=== PATIENT | female | born 1960 | race Caucasian/White ===

== ENCOUNTER → 2018-01-22 10:49 | Outpatient (CLI) | payer BC, SELFPAY ==
--- NOTE | 2018-01-22 10:56 | XR_ITS ---
XR ankle RT min 3V HISTORY: ITS.REASON: PAIN LATERAL PORTION OF ANKLE ORDERING PHYSICIAN: Tracy Schmidt PATIENT AGE: 57 years Comparison: None FINDINGS: There are 2 well-circumscribed lucencies at the tip of the lateral malleolus suggesting old fractures. In addition, there is a more ill-defined transverse lucency just proximal to the old fracture which may be due to an acute avulsion injury nondisplaced. Please correlate with clinical findings. No other significant anomalies are evident. There are no old studies available for review. IMPRESSION: Suspect old and acute transverse avulsion fractures at the lateral malleolus
== END ==
PROVIDERS: PCP Internal Medicine Adolescent Medicine; Visit Provider Nurse Practitioner Family
DX: M25.571 Pain in right ankle and joints of right foot (principal)
CPT/HCPCS: 73610

== ENCOUNTER → 2019-01-05 10:07 | Outpatient (CLI) | payer BC, SELFPAY ==
[2019-01-05 11:37] LABS: Alanine Aminotransferase 25 U/L (12-78); Albumin Level 3.5 gm/dL (3.4-5.0); Albumin/Globulin Ratio 1.2 (1.1-1.8); Alkaline Phosphatase 119 U/L (46-116); Anion Gap 15.3 mEq/L (5-15); Aspartate Amino Transferase 15 U/L (15-37); Bilirubin,Total 0.5 mg/dL (0.2-1.0); Blood Urea Nitrogen 12 mg/dL (7-18); Carbon Dioxide 27 mmol/L (21.0-32.0); Chloride 107 mmol/L (98-107); Chol/HDL Ratio 4.6 (1-3.5); Cholesterol 158 mg/dL (140-200); Creatinine,Serum 0.81 mg/dL (0.55-1.02); Estimated Glomerular Filt Rate 72 ml/min (>60); GFR (African American) 87 ML/MIN (>60); Glucose 103 mg/dL (74-106); HDL Cholesterol 34 mg/dL (29-89); LDL Cholesterol 98 mg/dL (0-130); Potassium 4.3 mmoL/L (3.5-5.1); Sodium 145 mmol/L (136-145); Thyroid Stimulating Hormone 0.93 uIU/ml (0.358-3.740); Total Protein,Serum 6.5 gm/dL (6.4-8.2); Triglycerides 129 mg/dL (30-200); VLDL Cholesterol 26 mg/dL (0-40)
[2019-01-11 06:16] LABS: Vitamin D 25 Hydroxy 27.1 ng/mL (30.0-100.0)
== END ==
PROVIDERS: Visit Provider Internal Medicine Adolescent Medicine
DX: E78.5 Hyperlipidemia, unspecified (principal); I10 Essential (primary) hypertension; E04.9 Nontoxic goiter, unspecified; E55.9 Vitamin D deficiency, unspecified
CPT/HCPCS: 36415; 80053; 80061; 82652; 84443

== ENCOUNTER → 2019-01-21 14:34 | Outpatient (CLI) | payer BC, SELFPAY ==
--- NOTE | 2019-01-21 14:39 | CT_ITS ---
CT lung screening EXAM: CT LUNG LOW DOSE WO CONTRAST HISTORY: 45 pack year smoking history, asymptomatic for lung cancer ITS.REASON: H/O NICOTINE DEPENDENCE ORDERING PHYSICIAN: Malou Freitas APRN PATIENT AGE: 58 years COMPARISON: None TECHNIQUE: The exam was performed on a GE Light Speed [address] scanner using 2.90 mGy CTDI. A low dose helical CT CHEST was performed on a multi-detector scanner. All studies performed at the facility use one or more dose reduction, viz: automated exposure control, ma/kV adjustment per patient size (including targeted exams where dose is matched to indication, i.e. head), or iterative reconstruction technique. The LDCT was performed in a facility that meets the criteria for the screening program. Data regarding this exam was submitted to ACR which is an approved registry. The order for this exam indicates that it came as a result of a lung cancer screening counseling shard decision-making visit that included all the elements required of such a visit including smoking cessation. The radiologist interpreting this exam meets the CMS criteria for the LDCT lung cancer screening program. The exam is reported using the Lung-RADS classification scale and reported to the ACR registry. NOTE: This study was performed for the specific purposes of lung cancer screening and is not an alternative to diagnostic chest CT. RADIATION DOSE: CTDI vol(CT dose Index-volume) = 2.90mG DLP (Dose Length Product) = 97.68 mGcm FINDINGS: 4 mm noncalcified nodule right upper lobe medially image #42. 4 mm noncalcified nodule right lower lobe posteriorly image #52. Calcified granuloma left upper lobe. Mild fibrotic or atelectatic change left lung base. Coronary artery calcifications. Medium-sized hiatal hernia. Osteosclerosis involves the endplates anteriorly at T7 and T8. IMPRESSION: 1. Lung RADS Category: 2, benign 2. Other findings: Coronary artery calcifications, Hiatal hernia RECOMMENDATIONS: 12 month LDCT follow-up
== END ==
PROVIDERS: PCP Internal Medicine Adolescent Medicine; Visit Provider Nurse Practitioner Family
DX: Z12.2 Encounter for screening for malignant neoplasm of respiratory organs (principal); Z87.891 Personal history of nicotine dependence

== ENCOUNTER 2021-06-10 11:00 | Outpatient (RCR) | payer BC, SELFPAY | END 2021-06-22 15:54 | disposition home or self-care (01) | LOC: OT 11:00 | PROVIDERS: Visit Provider Orthopaedic Surgery Adult Reconstructive Orthopaedic Surgery | DX: G56.03 Carpal tunnel syndrome, bilateral upper limbs (principal) | CPT/HCPCS: 97010; 97035; 97110; 97140; 97164; 97165 ==

== ENCOUNTER → 2022-03-22 09:43 | Outpatient (CLI) | payer BC, SELFPAY ==
--- NOTE | 2022-03-22 09:44 | US_ITS ---
FINAL REPORT CLINICAL HISTORY: abdominal pain FINDINGS: Sonographic images of the right upper quadrant were obtained. The pancreas is partially obscured.The liver has an unremarkable appearance.The gallbladder appears normal without evidence of gallstones.There is no evidence of biliary ductal dilatation. The common duct was not measured but there is no evidence of biliary ductal dilatation. Limited images of the right kidney are unremarkable. IMPRESSION: Unremarkable right upper quadrant ultrasound. Reviewed, Interpreted and Dictated by Kyle Fishman III, MD Transcribed by Aziza Jewell Authenticated and . [facility]
== END ==
PROVIDERS: PCP Internal Medicine Adolescent Medicine; Visit Provider Family Medicine
DX: R10.9 Unspecified abdominal pain (principal)
CPT/HCPCS: 76705

== ENCOUNTER → 2022-06-14 11:09 | Outpatient (CLI) | payer BC, SELFPAY ==
--- NOTE | 2022-06-14 11:09 | MM_ITS ---
PROCEDURE INFORMATION: Exam: MG Bilateral Screening 3D Mammography Exam date and time: 06/14/2022 11:04 AM Age: 61 years old Clinical indication: Screening. No family history of breast cancer. TECHNIQUE: Imaging protocol: Bilateral Screening tomosynthesis and 2D mammography including computer-aided detection (CAD) when performed. COMPARISON: 1. [place] VIV DIGITAL SCREEN BILATERAL 01/09/2019 8:52 AM 2. [place] TOMOSYNTESIS SCREEN 12/27/2016 1:29 PM FINDINGS: MAMMOGRAPHY: Breast composition: There are scattered areas of fibroglandular density. Mass: None. Architectural distortion: None. Calcifications: No suspicious calcifications. Asymmetric density: None. Skin thickening: None. Axillary adenopathy: None. IMPRESSION: No mammographic evidence of malignancy. Annual screening is recommended unless otherwise clinically indicated. ASSESSMENT: BI-RADS Category 1: Negative
== END ==
PROVIDERS: PCP Family Medicine; Visit Provider Family Medicine
DX: Z12.31 Encounter for screening mammogram for malignant neoplasm of breast (principal)
CPT/HCPCS: 77063; 77067

== ENCOUNTER → 2022-07-27 15:58 | Outpatient (CLI) | payer BC, SELFPAY ==
--- NOTE | 2022-07-27 16:03 | XR_ITS ---
FINAL REPORT CLINICAL HISTORY: neck pain and pain across shoulder blades, pain in left arm FINDINGS: CERVICAL SPINE Three views demonstrate no acute fracture. There are mild and moderate degenerative changes. Multilevel disc osteophyte complexes are identified. There is mild anterolisthesis of C3 on 4, C4 on 5, and C5 on 6. IMPRESSION: Degenerative changes as detailed above. Reviewed, Interpreted and Dictated by Kyle Fishman III, MD Transcribed by Aziza Jewell Authenticated and [facility]
--- NOTE | 2022-07-27 16:03 | XR_ITS ---
FINAL REPORT CLINICAL HISTORY: neck pain and pain across shoulder blades, pain in left arm FINDINGS: THORACIC SPINE Two views demonstrate no acute fracture. There is S-shaped curvature. There are mild degenerative changes. There is no malalignment. IMPRESSION: No acute process. Reviewed, Interpreted and Dictated by Kyle Fishman III, MD Transcribed by Aziza Jewell Authenticated and [facility]
== END ==
PROVIDERS: PCP Family Medicine; Visit Provider Family Medicine
DX: M54.2 Cervicalgia (principal); R20.2 Paresthesia of skin
CPT/HCPCS: 72040; 72070

== ENCOUNTER 2022-10-03 08:00 | Outpatient (RCR) | payer BC, SELFPAY | END 2022-11-14 09:30 | disposition home or self-care (01) | LOC: PT 08:00 | PROVIDERS: PCP Family Medicine; Visit Provider Family Medicine | DX: M54.2 Cervicalgia (principal) | CPT/HCPCS: 97010; 97012; 97014; 97110; 97140; 97163; 97164; 97530; G0283 ==

== ENCOUNTER → 2022-10-12 16:14 | Outpatient (CLI) | payer BC, SELFPAY ==
--- NOTE | 2022-10-12 16:14 | MR_ITS ---
PROCEDURE INFORMATION: Exam: MR Cervical Spine Without Contrast Exam date and time: 10/12/2022 4:38 PM Age: 62 years old Clinical indication: Neck pain. TECHNIQUE: Imaging protocol: Magnetic resonance imaging of the cervical spine without contrast. COMPARISON: MRI C SPINE WO 11/27/2020 1:57 PM FINDINGS: Bones/joints: Unremarkable. No fracture. Normal alignment. Spinal cord: Normal signal. No cord compression. C2-C3: There is disc desiccation. There is a moderate disc/osteophyte complex, partial toward the left, that flattens the ventral thecal sac and causes mild narrowing of the left neural foramen. There is bilateral uncovertebral joint arthropathy, worse on the left. There is moderate left-sided neuroforaminal narrowing. C3-C4: There is degenerative disc disease including disc space narrowing and dessication. There is mild ventral ridging which flattens the ventral thecal sac. C4-C5: There is grade 1 anterior spondylolisthesis at this level. There is disc space narrowing and desiccation. There are moderate degenerative end plate changes at this level. There is mild ventral ridging which flattens the ventral thecal sac. There is moderate bilateral uncovertebral joint arthropathy. C5-C6: There is grade 1 anterior spondylolisthesis at this level. There is degenerative disc disease including disc space narrowing and dessication. There is a moderate disc/osteophyte complex that flattens the ventral thecal sac. There is moderate bilateral uncovertebral joint arthropathy. C6-C7: There is disc space narrowing and desiccation. There are moderate degenerative end plate changes at this level. There is a moderate disc/osteophyte complex that flattens the ventral thecal sac. There is a small broad-based disc protrusion that encroaches into both neural foramen. There is moderate bilateral uncovertebral joint arthropathy. C7-T1: No significant disc bulge or herniation. No severe spinal canal stenosis. No significant neural foraminal narrowing. Soft tissues: Unremarkable. IMPRESSION: Multilevel degenerative changes causing varying degrees of spinal canal and neuroforaminal narrowing. There has been mild progression since prior study. Please see details above.
== END ==
PROVIDERS: PCP Family Medicine; Visit Provider Family Medicine
DX: M54.2 Cervicalgia (principal)
CPT/HCPCS: 72141; 76376

== ENCOUNTER → 2022-10-17 11:17 | Outpatient (CLI) | payer BC, SELFPAY ==
[2022-10-17 17:25] LABS: Basophils # 0.2 K/mm3 (0-0.2); Basophils % 2.1 % (0.1-2.0); Eosinophils # 0.3 K/mm3 (0.0-0.4); Eosinophils % 3.6 % (0.1-12.0); Hematocrit 34.7 % (37.0-47.0); Hemoglobin 11.4 g/dL (12.2-16.2); Lymphocytes # 1.6 K/mm3 (0.7-4.5); Lymphocytes % 21.7 % (10-50); Mean Corpuscular Hemoglobin 28.9 pg (27.0-31.2); Mean Corpuscular Volume 87.5 fl (81-99); Mean Platelet Volume 10.5 fl (7.4-10.4); Monocytes # 0.4 K/mm3 (0.1-1.0); Monocytes % 4.8 % (1.7-9.3); Neutrophils % 67.9 % (37.0-80.0); Platelet Count 249 K/mm3 (142-424); Red Blood Count 3.96 M/mm3 (4.20-5.40); Red Cell Distribution Width 14.4 % (11.5-17.5); White Blood Count 7.4 K/mm3 (4.8-10.8)
[2022-10-17 17:29] LABS: Alanine Aminotransferase 19 U/L (12-78); Albumin Level 4.1 g/dl (3.5-5.0); Albumin/Globulin Ratio 1.6 (1.1-1.8); Alkaline Phosphatase 120 U/L (38-126); Anion Gap 11.3 mEq/L (5-15); Aspartate Amino Transferase 31 U/L (14-36); Bilirubin,Total 0.4 mg/dl (0.2-1.3); Blood Urea Nitrogen 15 mg/dl (7-17); Calcium 9.3 mg/dl (8.4-10.2); Carbon Dioxide 25 mmol/L (22.0-30.0); Chloride 108 mmol/L (98-107); Chol/HDL Ratio 4.3 (1-3.5); Cholesterol 167 mg/dl (140-200); Estimated Glomerular Filt Rate 72 ml/min (>60); GFR (African American) 87 ML/MIN (>60); Globulin 2.6 g/dL (1.3-3.2); Glucose 103 mg/dl (74-100); HDL Cholesterol 39 mg/dl (40-60); Potassium 4.3 mmoL/L (3.5-5.1); Sodium 140 mmol/L (136-145); Total Protein,Serum 6.7 g/dl (6.3-8.2); Triglycerides 171 mg/dl (30-150); VLDL Cholesterol 34 mg/dL (0-40)
[2022-10-17 17:40] LABS: Direct LDL Cholesterol 93.56 mg/dL (100-129)
[2022-10-17 17:59] LABS: Thyroid Stimulating Hormone 1.33 uIU/mL (0.465-4.68)
== END ==
PROVIDERS: PCP Family Medicine; Visit Provider Family Medicine
DX: I10 Essential (primary) hypertension (principal); E78.5 Hyperlipidemia, unspecified; Z13.29 Encounter for screening for other suspected endocrine disorder; Z79.899 Other long term (current) drug therapy
CPT/HCPCS: 80053; 80061; 84443; 85025

== ENCOUNTER 2023-10-12 08:04 | Outpatient (CLI) | payer MEDICARE, SELFPAY ==
--- NOTE | 2023-10-12 08:05 | MM_ITS ---
PROCEDURE INFORMATION: Exam: MG Bilateral Screening 3D Mammography Exam date and time: 10/12/2023 8:05 AM Age: 63 years old Clinical indication: Screening examination TECHNIQUE: Imaging protocol: Bilateral Screening tomosynthesis and 2D mammography including computer-aided detection (CAD) when performed. COMPARISON: 1. MG MM DIG SCREENING MAMM BI W/CAD 06/14/2022 11:04 AM 2. MG [facility] VIV DIGITAL SCREEN BILATERAL 01/09/2019 8:52 AM FINDINGS: MAMMOGRAPHY: Breast composition: There are scattered areas of fibroglandular density. Mass: None. Architectural distortion: None. Calcifications: No suspicious calcifications. Asymmetric density: None. Skin thickening: None. Axillary adenopathy: None. IMPRESSION: No mammographic evidence of malignancy. Annual screening is recommended unless otherwise clinically indicated. ASSESSMENT: BI-RADS Category 1: Negative
== END 2023-10-12 23:59 ==
LOC: RAD 08:05
PROVIDERS: PCP Family Medicine; Visit Provider Nurse Practitioner Family
DX: Z12.31 Encounter for screening mammogram for malignant neoplasm of breast (principal)
CPT/HCPCS: 77063; 77067

== ENCOUNTER 2023-10-24 16:45 | Outpatient (CLI) | payer MEDICARE, SELFPAY ==
[2023-10-24 16:46] LABS: Basophils # 0.1 K/mm3 (0-0.2); Basophils % 1.3 % (0.1-2.0); Eosinophils # 0.2 K/mm3 (0.0-0.4); Eosinophils % 2.5 % (0.1-12.0); Hematocrit 37.7 % (37.0-47.0); Hemoglobin 11.5 g/dL (12.2-16.2); Lymphocytes # 1.7 K/mm3 (0.7-4.5); Lymphocytes % 26.2 % (10-50); Mean Corpuscular HGB Conc 30.6 g/dL (31.8-35.4); Mean Corpuscular Hemoglobin 26.5 pg (27.0-31.2); Mean Corpuscular Volume 86.8 fl (81-99); Mean Platelet Volume 11.1 fl (7.4-10.4); Monocytes # 0.4 K/mm3 (0.1-1.0); Monocytes % 5.9 % (1.7-9.3); Neutrophils # 4.2 K/mm3 (1.8-7.8); Neutrophils % 64.1 % (37.0-80.0); Platelet Count 278 K/mm3 (142-424); Red Blood Count 4.34 M/mm3 (4.20-5.40); Red Cell Distribution Width 15.3 % (11.5-17.5); White Blood Count 6.6 K/mm3 (4.8-10.8)
[2023-10-24 16:48] LABS: Albumin Level 4.6 g/dl (3.5-5.0); Albumin/Globulin Ratio 1.8 (1.1-1.8); Calcium 10.4 mg/dl (8.4-10.2); Chloride 105 mmol/L (98-107); Globulin 2.6 g/dL (1.3-3.2); Glucose 122 mg/dl (74-100); HDL Cholesterol 44 mg/dl (40-60); Potassium 4.2 mmoL/L (3.5-5.1); Sodium 140 mmol/L (136-145); Total Protein,Serum 7.2 g/dl (6.3-8.2)
[2023-10-24 16:50] LABS: Alkaline Phosphatase 99 U/L (38-126); Anion Gap 11.2 mEq/L (5-15); Bilirubin,Total 0.4 mg/dl (0.2-1.3); Carbon Dioxide 28 mmol/L (22.0-30.0); Chol/HDL Ratio 4.9 (1-3.5); Cholesterol 217 mg/dl (140-200); Triglycerides 215 mg/dl (30-150); VLDL Cholesterol 43 mg/dL (0-40)
[2023-10-24 16:52] LABS: Estimated Glomerular Filt Rate 41 ml/min (>60); GFR (African American) 50 ML/MIN (>60)
[2023-10-24 16:59] LABS: Direct LDL Cholesterol 111.32 mg/dL (100-129)
[2023-10-24 17:05] LABS: 25-OH Vitamin D, Total 41.7 ng/mL (30-100)
[2023-10-24 17:41] LABS: Alanine Aminotransferase 16 U/L (12-78); Aspartate Amino Transferase 29 U/L (14-36); Blood Urea Nitrogen 23 mg/dl (7-17)
[2023-10-26 11:28] LABS: Hemoglobin A1C 5.8 % (4.0-6.0)
== END 2023-10-24 23:59 ==
LOC: LAB.DROPOF 16:46
PROVIDERS: PCP Nurse Practitioner Family; Visit Provider Nurse Practitioner Family
DX: I10 Essential (primary) hypertension (principal); E78.5 Hyperlipidemia, unspecified; E55.9 Vitamin D deficiency, unspecified; R73.09 Other abnormal glucose; Z68.33 Body mass index [BMI] 33.0-33.9, adult; F17.210 Nicotine dependence, cigarettes, uncomplicated
CPT/HCPCS: 80053; 80061; 82306; 83036; 84443; 85025

== ENCOUNTER 2024-01-23 22:25 | Outpatient (CLI) | payer MEDICARE, SELFPAY ==
[2024-01-23 23:24] LABS: Basophils # 0.1 K/mm3 (0-0.2); Basophils % 0.8 % (0.1-2.0); Eosinophils # 0.2 K/mm3 (0.0-0.4); Eosinophils % 2.9 % (0.1-12.0); Hematocrit 39.9 % (37.0-47.0); Hemoglobin 12.7 g/dL (12.2-16.2); Lymphocytes # 1.8 K/mm3 (0.7-4.5); Lymphocytes % 26.5 % (10-50); Mean Corpuscular HGB Conc 31.8 g/dL (31.8-35.4); Mean Corpuscular Hemoglobin 28.9 pg (27.0-31.2); Mean Corpuscular Volume 90.9 fl (81-99); Mean Platelet Volume 11.2 fl (7.4-10.4); Monocytes # 0.4 K/mm3 (0.1-1.0); Monocytes % 5.2 % (1.7-9.3); Neutrophils # 4.4 K/mm3 (1.8-7.8); Neutrophils % 64.5 % (37.0-80.0); Platelet Count 214 K/mm3 (142-424); White Blood Count 6.9 K/mm3 (4.8-10.8)
[2024-01-23 23:25] LABS: Chloride 105 mmol/L (98-107); Potassium 4.1 mmoL/L (3.5-5.1); Sodium 140 mmol/L (136-145)
[2024-01-23 23:27] LABS: Blood Urea Nitrogen 20 mg/dl (7-17); Estimated Glomerular Filt Rate 50 ml/min (>60); GFR (African American) 60 ML/MIN (>60)
[2024-01-23 23:28] LABS: Alanine Aminotransferase 22 U/L (12-78); Albumin Level 4.4 g/dl (3.5-5.0); Albumin/Globulin Ratio 1.6 (1.1-1.8); Alkaline Phosphatase 103 U/L (38-126); Anion Gap 12.1 mEq/L (5-15); Aspartate Amino Transferase 32 U/L (14-36); Bilirubin,Total 0.3 mg/dl (0.2-1.3); Calcium 10.6 mg/dl (8.4-10.2); Carbon Dioxide 27 mmol/L (22.0-30.0); Cholesterol 208 mg/dl (140-200); Globulin 2.8 g/dL (1.3-3.2); Glucose 118 mg/dl (74-100); Total Protein,Serum 7.2 g/dl (6.3-8.2); Triglycerides 222 mg/dl (30-150); VLDL Cholesterol 44 mg/dL (0-40)
[2024-01-23 23:29] LABS: Chol/HDL Ratio 4.8 (1-3.5); HDL Cholesterol 43 mg/dl (40-60)
[2024-01-23 23:38] LABS: Hemoglobin A1C 5.5 % (4.0-6.0)
[2024-01-23 23:46] LABS: Direct LDL Cholesterol 116.09 mg/dL (100-129)
[2024-01-24 14:11] LABS: HIV (1&2) Antibody Rapid NONREACTIVE
[2024-01-24 14:45] LABS: Intact Parathyroid Hormone 25.6 pg/mL (7.5-53.5)
[2024-01-25 10:41] LABS: HCV Ab Non Reactive (Non Reactive)
== END 2024-01-23 23:59 | disposition home or self-care (01) ==
LOC: LAB.DROPOF 22:26
PROVIDERS: PCP Nurse Practitioner Family; Visit Provider Nurse Practitioner Family
DX: R73.09 Other abnormal glucose (principal); D64.9 Anemia, unspecified; Z11.59 Encounter for screening for other viral diseases; E78.5 Hyperlipidemia, unspecified; R89.9 Unspecified abnormal finding in specimens from other organs, systems and tissues
CPT/HCPCS: 80053; 80061; 83036; 83970; 85025

== ENCOUNTER 2024-04-30 16:19 | Outpatient (CLI) | payer MEDICARE, SELFPAY ==
[2024-04-30 16:24] LABS: Albumin Level 4.3 g/dl (3.5-5.0); Chloride 109 mmol/L (98-107); Potassium 4.7 mmoL/L (3.5-5.1); Sodium 141 mmol/L (136-145)
[2024-04-30 16:27] LABS: Alanine Aminotransferase 24 U/L (12-78); Albumin/Globulin Ratio 1.7 (1.1-1.8); Alkaline Phosphatase 103 U/L (38-126); Anion Gap 6.7 mEq/L (5-15); Aspartate Amino Transferase 31 U/L (14-36); Bilirubin,Total 0.5 mg/dl (0.2-1.3); Blood Urea Nitrogen 17 mg/dl (7-17); Calcium 10.5 mg/dl (8.4-10.2); Carbon Dioxide 30 mmol/L (22.0-30.0); Cholesterol 177 mg/dl (140-200); Estimated Glomerular Filt Rate 56 ml/min (>60); GFR (African American) 67 ML/MIN (>60); Globulin 2.6 g/dL (1.3-3.2); Glucose 109 mg/dl (74-100); HDL Cholesterol 44 mg/dl (40-60); Total Protein,Serum 6.9 g/dl (6.3-8.2); Triglycerides 159 mg/dl (30-150); VLDL Cholesterol 32 mg/dL (0-40)
[2024-04-30 16:33] LABS: Basophils # 0.1 K/mm3 (0-0.2); Basophils % 0.7 % (0.1-2.0); Eosinophils # 0.2 K/mm3 (0.0-0.4); Eosinophils % 3.1 % (0.1-12.0); Hematocrit 40.5 % (37.0-47.0); Hemoglobin 13.2 g/dL (12.2-16.2); Lymphocytes # 1.8 K/mm3 (0.7-4.5); Lymphocytes % 28.6 % (10-50); Mean Corpuscular HGB Conc 32.6 g/dL (31.8-35.4); Mean Corpuscular Hemoglobin 31.7 pg (27.0-31.2); Mean Corpuscular Volume 97.2 fl (81-99); Mean Platelet Volume 10.1 fl (7.4-10.4); Monocytes # 0.3 K/mm3 (0.1-1.0); Monocytes % 5.1 % (1.7-9.3); Neutrophils % 62.4 % (37.0-80.0); Platelet Count 214 K/mm3 (142-424); Red Blood Count 4.17 M/mm3 (4.20-5.40); Red Cell Distribution Width 14.3 % (11.5-17.5); White Blood Count 6.4 K/mm3 (4.8-10.8)
[2024-04-30 16:38] LABS: Direct LDL Cholesterol 92.91 mg/dL (100-129)
== END 2024-04-30 23:59 | disposition home or self-care (01) ==
LOC: LAB.DROPOF 16:20
PROVIDERS: PCP Family Medicine; Visit Provider Family Medicine
DX: I10 Essential (primary) hypertension (principal); E78.5 Hyperlipidemia, unspecified
CPT/HCPCS: 80053; 80061; 85025

== ENCOUNTER 2024-05-14 09:32 | Outpatient (CLI) | payer MEDICARE, SELFPAY ==
--- NOTE | 2024-05-14 09:32 | CT_ITS ---
FINAL REPORT TECHNIQUE: Thin section axial images were obtained from the lung apices to the upper abdomen by computed tomography. Reformatted images were obtained and reviewed. This study was performed with techniques to keep radiation doses al low as reasonably achievable (ALARA). Individualized dose reduction techniques using automated exposure control or adjustment of mA and/or kV according to the patient's size were employed. CLINICAL HISTORY: lung cancer screening cuurent smoker 1ppd x49 years COMPARISON: Exam dated 01/21/2019 FINDINGS: CHEST CT LOW DOSE 64-year-old female, current smoker, [id number] history. CTDI vol (mGy): 2.9 DLP (mGy-cm): 93.77 There is no axillary adenopathy. A large hiatal hernia is present. There are mild coronary artery calcifications noted. The heart is normal in size. There is no pericardial or pleural effusion. A calcified granuloma is present in the left upper lobe. Lung window images demonstrate a posterior right lower lobe nodule, 4 mm in size, best seen on image #50 of series 3, stable since the prior exam. No new masses or nodules are identified. Limited images of the upper abdomen are unremarkable. IMPRESSION: Lung-RADS category 1. Recommend 12 month follow up low dose chest CT. Reviewed, Interpreted and Dictated by Kyle Fishman III, MD Transcribed by Altagracia Major Authenticated and [facility]
== END 2024-05-14 23:59 | disposition home or self-care (01) ==
LOC: RAD 09:32
PROVIDERS: PCP Family Medicine; Visit Provider Family Medicine
DX: F17.210 Nicotine dependence, cigarettes, uncomplicated (principal)
CPT/HCPCS: 71271

== ENCOUNTER 2024-11-01 10:15 | Outpatient (CLI) | payer MEDICARE, SELFPAY ==
[2024-11-01 16:32] LABS: Basophils % 0.6 % (0.1-2.0); Eosinophils # 0.2 K/mm3 (0.0-0.4); Eosinophils % 3.3 % (0.1-12.0); Hematocrit 39.4 % (37.0-47.0); Hemoglobin 12.6 g/dL (12.2-16.2); Lymphocytes # 1.8 K/mm3 (0.7-4.5); Lymphocytes % 27.1 % (10-50); Mean Platelet Volume 12.5 fl (7.4-10.4); Monocytes # 0.4 K/mm3 (0.1-1.0); Monocytes % 5.8 % (1.7-9.3); Neutrophils # 4.2 K/mm3 (1.8-7.8); Neutrophils % 62.9 % (37.0-80.0); Platelet Count 292 K/mm3 (142-424); Red Blood Count 4.06 M/mm3 (4.20-5.40); Red Cell Distribution Width 13.4 % (11.5-17.5); White Blood Count 6.7 K/mm3 (4.8-10.8)
[2024-11-01 17:21] LABS: Albumin Level 4.8 g/dl (3.5-5.0); Chloride 105 mmol/L (98-107); Potassium 5.7 mmoL/L (3.5-5.1); Sodium 140 mmol/L (136-145)
[2024-11-01 17:24] LABS: Alanine Aminotransferase 34 U/L (12-78); Albumin/Globulin Ratio 1.9 (1.1-1.8); Alkaline Phosphatase 87 U/L (38-126); Anion Gap 15.7 mEq/L (5-15); Aspartate Amino Transferase 48 U/L (14-36); Bilirubin,Total 0.6 mg/dl (0.2-1.3); Blood Urea Nitrogen 23 mg/dl (7-17); Calcium 10.6 mg/dl (8.4-10.2); Carbon Dioxide 25 mmol/L (22.0-30.0); Cholesterol 254 mg/dl (140-200); Estimated Glomerular Filt Rate 38 ml/min (>60); GFR (African American) 46 ML/MIN (>60); Globulin 2.5 g/dL (1.3-3.2); Glucose 95 mg/dl (74-100); Total Protein,Serum 7.3 g/dl (6.3-8.2); Triglycerides 262 mg/dl (30-150); VLDL Cholesterol 52 mg/dL (0-40)
[2024-11-01 17:25] LABS: Chol/HDL Ratio 5.8 (1-3.5); HDL Cholesterol 44 mg/dl (40-60)
[2024-11-01 17:37] LABS: Direct LDL Cholesterol 145.17 mg/dL (100-129)
[2024-11-01 17:54] LABS: Thyroid Stimulating Hormone 1.51 uIU/mL (0.465-4.68)
[2024-11-01 18:11] LABS: Hemoglobin A1C 5.5 % (4.0-6.0)
== END 2024-11-01 23:59 | disposition home or self-care (01) ==
LOC: LAB.DROPOF 11-02 11:15
PROVIDERS: PCP Nurse Practitioner Family; Visit Provider Nurse Practitioner Family
DX: E78.1 Pure hyperglyceridemia (principal); I10 Essential (primary) hypertension; E55.9 Vitamin D deficiency, unspecified; F41.8 Other specified anxiety disorders; E78.5 Hyperlipidemia, unspecified; K21.9 Gastro-esophageal reflux disease without esophagitis
CPT/HCPCS: 80053; 80061; 82306; 83036; 84443; 85025

== ENCOUNTER 2024-11-05 13:59 | Outpatient (CLI) | payer MEDICARE, SELFPAY ==
--- NOTE | 2024-11-05 14:30 | MM_ITS ---
PROCEDURE INFORMATION: Exam: MG Bilateral Screening 3D Mammography Exam date and time: 11/05/2024 2:05 PM Age: 64 years old Clinical indication: Screening examination TECHNIQUE: Imaging protocol: Bilateral Screening tomosynthesis and 2D mammography including computer-aided detection (CAD) when performed. COMPARISON: 1. MG MM DIG SCREENING MAMM BI W/CAD 10/12/2023 8:05 AM 2. MG MM DIG SCREENING MAMM BI W/CAD 06/14/2022 11:04 AM FINDINGS: MAMMOGRAPHY: Breast composition: There are scattered areas of fibroglandular density. Mass: None. Architectural distortion: None. Calcifications: No suspicious calcifications. Asymmetric density: None. Skin thickening: None. Axillary adenopathy: None. IMPRESSION: No mammographic evidence of malignancy. Annual screening is recommended unless otherwise clinically indicated. ASSESSMENT: BI-RADS Category 1: Negative.
[2024-11-05 15:32] LABS: Alanine Aminotransferase 27 U/L (12-78); Albumin Level 4.6 g/dl (3.5-5.0); Albumin/Globulin Ratio 1.5 (1.1-1.8); Alkaline Phosphatase 75 U/L (38-126); Aspartate Amino Transferase 29 U/L (14-36); Bilirubin,Total 0.6 mg/dl (0.2-1.3); Blood Urea Nitrogen 19 mg/dl (7-17); Calcium 11.2 mg/dl (8.4-10.2); Carbon Dioxide 25 mmol/L (22.0-30.0); Chloride 105 mmol/L (98-107); Chol/HDL Ratio 4.9 (1-3.5); Cholesterol 226 mg/dl (140-200); Estimated Glomerular Filt Rate 45 ml/min (>60); GFR (African American) 54 ML/MIN (>60); Globulin 3.1 g/dL (1.3-3.2); Glucose 89 mg/dl (74-100); HDL Cholesterol 46 mg/dl (40-60); Sodium 140 mmol/L (136-145); Total Protein,Serum 7.7 g/dl (6.3-8.2); Triglycerides 228 mg/dl (30-150); VLDL Cholesterol 46 mg/dL (0-40)
[2024-11-05 15:44] LABS: Direct LDL Cholesterol 134.65 mg/dL (100-129)
== END 2024-11-05 23:59 | disposition home or self-care (01) ==
LOC: RAD 13:59
PROVIDERS: Nurse Practitioner Family; PCP Family Medicine; Visit Provider Family Medicine
DX: Z12.31 Encounter for screening mammogram for malignant neoplasm of breast (principal); I10 Essential (primary) hypertension
CPT/HCPCS: 36415; 77063; 77067; 80053; 80061

== ENCOUNTER 2025-02-06 09:48 | Outpatient (CLI) | payer MEDICARE, SELFPAY ==
[2025-02-06 21:23] LABS: Hematocrit 39.3 % (37.0-47.0); Hemoglobin 11.8 g/dL (12.2-16.2); Immature Granulocytes % 0.2 %; Mean Corpuscular HGB Conc 30.0 g/dL (31.8-35.4); Mean Corpuscular Hemoglobin 29.0 pg (27.0-31.2); Mean Corpuscular Volume 96.6 fl (81-99); Nucleated Red Blood Cells % 0 %; Platelet Count 233 K/mm3 (142-424); Red Blood Count 4.07 M/mm3 (4.20-5.40); Red Cell Distribution Width-SD 47.8 fL; White Blood Count 6.7 K/mm3 (4.8-10.8)
[2025-02-06 21:48] LABS: Alanine Aminotransferase 17 U/L (12-78); Albumin Level 4.5 g/dl (3.5-5.0); Albumin/Globulin Ratio 1.9 (1.1-1.8); Alkaline Phosphatase 98 U/L (38-126); Anion Gap 13.2 mEq/L (5-15); Aspartate Amino Transferase 25 U/L (14-36); Bilirubin,Total 0.5 mg/dl (0.2-1.3); Blood Urea Nitrogen 18 mg/dl (7-17); Calcium 10.1 mg/dl (8.4-10.2); Carbon Dioxide 27 mmol/L (22.0-30.0); Chloride 104 mmol/L (98-107); Cholesterol 141 mg/dl (140-200); Creatinine,Serum 0.90 mg/dl (0.52-1.04); Estimated Glomerular Filt Rate 63 ml/min (>60); GFR (African American) 76 ML/MIN (>60); Globulin 2.4 g/dL (1.3-3.2); Glucose 124 mg/dl (74-100); HDL Cholesterol 37 mg/dl (40-60); Potassium 4.2 mmoL/L (3.5-5.1); Sodium 140 mmol/L (136-145); Total Protein,Serum 6.9 g/dl (6.3-8.2); Triglycerides 165 mg/dl (30-150)
[2025-02-06 22:04] LABS: 25-OH Vitamin D, Total 28.7 ng/mL (30-100)
[2025-02-09 08:10] LABS: Hepatitis B Surface Antigen Negative (Negative)
--- OUTSIDE RECORDS SUMMARY | 2025-02-10 10:00 | XMS_ITS | Clinical Summary ---
Author Organization Healthcare Address [address] [id number] Care Team Providers Care Metal Furnace Operator Name Role Phone Tiffany Martínez STONE FINISHER Primary Care Provider +1- [phone] Allergies No known active allergies Medications atorvastatin (Lipitor) 40 MG tablet Take by mouth. 10/28/2020 Active carvedilol (Coreg) 25 MG tablet Take by mouth. 10/28/2020 Active cetirizine (ZyrTEC) 10 MG tablet Take by mouth. 10/28/2020 Active famotidine (Pepcid) 20 MG tablet Take by mouth. 10/28/2020 Active hydroCHLOROthiaz keisha (HYDRODiuril) 25 MG tablet Take by mouth. 10/15/2020 Active omeprazole (PriLOSEC) [address] capsule Take by mouth. 10/28/2020 Active sertraline (Zoloft) 100 MG tablet Take by mouth. 11/02/2020 Active Family History Medical History Relation Name Comments Rheum arthritis Sister Relation Name Status Comments Sister Social History Tobacco Use Types Packs/Day Years Used Date Smoking Tobacco: Every Day Comments Unknown Sex and Gender Information Value Date Recorded Sex Assigned at Not on file Legal Sex Female 8:26 PM EDT Gender Identity Not on file Sexual Orientation Not on file Last Filed Vital Signs Vital Sign Reading Time Taken Comments Blood Pressure 130/78 12/11/2020 7:44 AM EDT Pulse 57 12/11/2020 7:44 AM EDT Temperature 36.5 C (97.7 F) 12/11/2020 7:44 AM EDT Respiratory Rate - - Oxygen Saturation - - Inhaled Oxygen Concentration - - Weight 90.9 kg (200 lb 8 oz) 12/11/2020 7:44 AM EDT Height 162.6 cm (5' 4 ) 12/11/2020 7:44 AM EDT Body Mass Index 34.42 12/11/2020 7:44 AM EDT Plan of Treatment Health Maintenance Due Date Last Done Comments [facility]-Bone Density Scan 1960 [facility]-Depression Screening 1960 [facility]-/Child/Adol SDOH Screenings 1960 [facility]- SDOH Screenings 1976 [facility]-Adult SDOH Screenings 1976 [facility]-DTaP,Tdap,and Td Vaccines (1 - Tdap) 1977 CT Colonography 2003 Colonoscopy 2003 FIT-DNA 2003 FIT 2003 FOBT 2003 Sigmoidoscopy 2003 [facility]-Colorectal Cancer Screening 2003 [facility]-Pneumococcal Vaccine: 50+ Years (1 of 1 - PCV) 2008 [facility]-Zoster Vaccines (1 of 2) 2008 [id number] Vaccine (1 - season) 2024 [facility]-Influenza Vaccine (#1) 2025 [facility]-RSV Vaccine: 60+ Years or (1 - 1-dose 75+ series) 2033 [facility]-Cervical Cancer Screening Discontinued [facility]-HPV/Cotest Discontinued 05/24/2007, 05/07, 03/31/2005, Additional history exists [facility]-Pap Smear Discontinued 05/24/2007, 05/07, 03/31/2005, Additional history exists HPV Vaccines Aged Out No longer eligi ble based on patient's age to complete this topic [facility]-HIB Vaccines Aged Out No longer e ligible based on patient's age to complete this topic [facility]-Hepatitis A Vaccines Aged Out No longer eligible based on patient's age to complete this topic [facility]-IPV Vaccines Aged Out No longer e ligible based on patient's age to complete this topic [facility]-Rotavirus Vaccines Aged Out No lo nger eligible based on patient's age to complete this topic Procedures Procedure Name Priority Date/Time Associated Diagnosis Comments CYTO DATA CONVERSION Routine 05/24/2007 12:00 AM EDT from Last 3 Months or Most Recently Relevant to Health Maintenance Results * (ABNORMAL) Cytology (05/24/2007 12:00 AM EDT) 05/24/2007 05/25/2007 2:2 5 PM EDT Narrative SUNQUEST - 06/04/2007 1:53 PM EDT [facility] MR #: [id number] [facility] [address] [place], [place] [address] 1960 (Age: 46) FW Collect Date: 05/24/2007 00:00 Receipt Date: 05/25/2007 14:25 Page 1 DEPARTMENT OF PATHOLOGY AND LABORATORY MEDICINE CYTOPATHOLOGY REPORT Email: [email or web address] [id number] ATTENDING MD/Practitioner: Fe Yeboah MD Service: [facility] Location: OUTS Reported: 06/04/2007 13:53 Collected: 05/24/2007 00:00 INTERPRETATION A. THIN PREP (CERVICAL/VAGINAL): ATYPICAL SQUAMOUS CELLS - UNDETERMINED SIGNIFICANCE. SHIFT IN VICTORIANO SUGGESTIVE OF BACTERIAL VAGINOSIS. SATISFACTORY FOR EVALUATION; ENDOCERVICAL/ TRANSFORMATION ZONE COMPONENT PRESENT. Slide scanned and imaged by [employer] ThinPrep Imaging System with manual review of all selected apple. Please correlate with HPV results (see microbiology report, or call [phone]) and refer to clinical guidelines for additional management (www.asccp.org). Electronically Signed Out Leonid Castro, CT(ASCP) MD Vonda Celeste CT(ASCP) Cervical cytology is a screening test primarily for squamous cancers and precursors and has associated false negative and positive results. New technologies such as liquid based sampling may decrease but will not eliminate all false negative results. Regular screening and follow-up of unexplained clinical signs and symptoms are recommended to minimize false negative results. Please see the ASCCP website (www.asccp.org) for followup recommendations. If HPV testing was requested, correlation with the results is suggested (please call Microbiology at [phone] for results). CLINICAL INFORMATION: Menstrual History: {Not Provided} Date of Last Menstrual Period: 06/08 Contraceptive History: control pills Other Clinical Conditions: Tobacco user SPECIMEN DESCRIPTION: A: THIN PREP (CERVICAL/VAGINAL) THIN PREP PROCESS CELLULAR ENHANCEMENT ICD: V76.2 CERVIX, SPECIAL SCREENING FOR MALIGNANT NEOPLASM 795.01 (ASC-US) PAPANICOLAOU SMEAR OF CERVIX W/ATYPICAL SQUAMOUS CELLS OF UNDETERMINED SIGNIFICANCE 622.2 LEUKOPLAKIA OF CERVIX (HYPERKERATOSIS CERVIX) 041.89 OTHER SPECIFIED BACTERIAL INFECTIONS F: A; RT IMAGE 78339, 00240 C\V (PO) SNOMED CODES: A; H9R270 M-06214 [id number] [id number] In cases where a pathologist has signed out the report, the service has been rendered in part by a resident. The signing pathologist has performed and is responsible for the reported pathologic evaluation. us Historical Provider MD LAB PATHOLOGY ORDERABLES Final Result [employer] from Last 3 Months or Most Recently Relevant to Health Maintenance Insurance [facility]ly [facility], [facility] [address] Care Teams Metal Furnace Operator Relationship Specialty Start Date End Date Tiffany Martínez APRN [address] [place] [id number] PCP - General 12/18/20
--- OUTSIDE RECORDS SUMMARY | 2025-02-10 10:00 | XMS_ITS | Clinical Summary ---
Author Organization [facility] Address [address] [place] [address] Care Team Providers Care Solar Energy Installation Manager Name Role Phone System, Referring Not In Primary Care Provider U navailable Social History Tobacco Use Types Packs/Day Years Used Date Smoking Tobacco: Never Assessed Comments Unknown Sex and Gender Information Value Date Recorded Sex Assigned at Not on file Legal Sex Female 12:37 PM EDT Gender Identity Not on file Sexual Orientation Not on file Plan of Treatment Not on [place] [address] [place] BC[place] Care Teams Solar Energy Installation Manager Relationship Specialty Start Date End Date System, Referring Not In PCP - General 11/05/13
== END 2025-02-06 23:59 | disposition home or self-care (01) ==
LOC: LAB.DROPOF 02-10 09:49
PROVIDERS: PCP Nurse Practitioner Family; Visit Provider Nurse Practitioner Family
DX: E78.5 Hyperlipidemia, unspecified (principal); Z11.59 Encounter for screening for other viral diseases; R79.89 Other specified abnormal findings of blood chemistry
CPT/HCPCS: 80053; 80061; 82306; 85025; 87340

== ENCOUNTER 2025-05-22 14:11 | Outpatient (CLI) | payer MEDICARE, SELFPAY ==
--- OUTSIDE RECORDS SUMMARY | 2025-05-22 14:29 | XMS_ITS | Clinical Summary ---
Author Organization Healthcare Address [address] [id number] Care Team Providers Care Tension Machine Operator Name Role Phone Tiffany Martínez ICING AND GLAZE MAKER Primary Care Provider +1- [phone] Allergies No known active allergies Medications atorvastatin [...] [facility]-Bone Density Scan 1960 [facility]-Depression Screening 1958 [facility]-Infant/Child/Adol SDOH Screenings 1958 [facility]- SDOH Screenings 1976 [facility]-Adult SDOH Screenings 1976 [facility]-DTaP,Tdap,and Td Vaccines (1 - Tdap) 1977 CT Colonography 2003 Colonoscopy 2003 FIT-DNA 2003 FIT 2003 FOBT 2003 Sigmoidoscopy 2003 [facility]-Colorectal Cancer Screening 2003 [facility]-Pneumococcal Vaccine: 50+ Years (1 of 1 - PCV) 2008 [facility]-Zoster Vaccines (1 of 2) 2008 [id number] Vaccine (1 - season) 2025 [facility]-Influenza Vaccine (#1) 2025 [facility]-RSV Vaccine: 60+ [...] Narrative SUNQUEST - 06/04/2007 1:53 PM EDT [facility] MR #: [id number] [facility] [address] [place], [place] [address] 1960 (Age: 46) FW Collect Date: 05/24/2007 00:00 Receipt Date: 05/25/2007 14:25 Page 1 DEPARTMENT OF PATHOLOGY AND LABORATORY MEDICINE CYTOPATHOLOGY REPORT Email: [id number] ATTENDING MD/Practitioner: Fe Yeboah MD Service: [facility] Location: OUTS Reported: 06/04/2007 13:53 Collected: 05/24/2007 00:00 INTERPRETATION A. THIN PREP (CERVICAL/VAGINAL): ATYPICAL SQUAMOUS CELLS - UNDETERMINED SIGNIFICANCE. SHIFT IN VICTORIANO SUGGESTIVE OF BACTERIAL VAGINOSIS. SATISFACTORY FOR EVALUATION; ENDOCERVICAL/ TRANSFORMATION ZONE COMPONENT PRESENT. Slide scanned and imaged by [email or web address] ThinPrep Imaging System with manual review of all selected apple. Please correlate with HPV results (see microbiology report, or call [phone]) and refer to clinical guidelines for additional [...] results is suggested (please call Microbiology at [phone] for results). CLINICAL INFORMATION: Menstrual History: {Not [...] SPECIFIED BACTERIAL INFECTIONS F: A; RT IMAGE 06286, 76441 C\V (PO) SNOMED CODES: A; [id number] M-[id number] [id number] In cases where a pathologist has signed out the report, the service has been rendered in part by a resident. The signing pathologist has performed and is responsible for the reported pathologic evaluation. us Historical Provider LAB PATHOLOGY ORDERABLES Fin al Result [email or web address] from Last 3 Months or Most Recently Relevant to Health Maintenance Insurance [facility]ly [facility], [id number] Care Teams Tension Machine Operator Relationship Specialty Start Date End Date Tiffany Martínez APRN [address] [place] [id number] PCP - General 12/18/20
--- OUTSIDE RECORDS SUMMARY | 2025-05-22 14:29 | XMS_ITS | Clinical Summary ---
Author Organization [facility] Address [address], [address] [place] [address] Care Team Providers Care Sports Clerk Name Role Phone System, Referring Not In Primary Care Provider U navailable Social History Tobacco Use Types Packs/Day Years Used Date Smoking Tobacco: Never Assessed Comments Unknown Sex and Gender Information Value Date Recorded Sex Assigned at Not on file Legal Sex Female 12:37 PM EDT Gender Identity Not on file Sexual Orientation Not on file Plan of Treatment Not on file Insurance [place] [address] [place] BCBS Care Teams Sports Clerk Relationship Specialty Start Date End Date System, Referring Not In PCP - General 11/05/13
--- OUTSIDE RECORDS SUMMARY | 2025-05-22 14:29 | XMS_ITS | Clinical Summary ---
Author Organization [facility] Address [address] [place] [address] Care Team Providers Care Icd 9 Coder Name Role Phone Alvarez Duncan MD Primary Care Provider +1- [phone] Allergies No known active allergies Medications aspirin 81 MG oral suspension Acti ve atorvastatin (LIPITOR) 40 MG tablet Take 1 tablet by mouth Daily. 3 Active busPIRone (BUSPAR) 5 MG tablet Take 1 tablet by mouth Every 12 (Twelve) Hours. 3 Active carvedilol (COREG) 25 MG tablet TAKE 1 TABLET 2 TIMES EACH DAY FOR HYPERTENSION 3 Active vitamin D3 125 MCG (5000 UT) capsule capsule Acti ve Cyanocobalamin (Vitamin B-12) 5000 MCG tablet dispersible Active fenofibrate (TRICOR) 48 MG tablet TAKE 1 TABLET 1 TIME EACH DAY FOR HIGH CHOLESTEROL 3 Active hydroCHLOROthia zide (HYDRODIURIL) 25 MG tablet Active multivitamin with minerals (WOMENS ONE DAILY PO) Active sertraline (ZOLOFT) 100 MG tablet TAKE 1 TABLET 1 TIME EACH DAY FOR DEPRESSION 3 Active omeprazole (priLOSEC) 40 MG capsule 1 capsule. 3 Active Active Problems Problem Noted Date Diagnosed Date Cervicalgia 02/16/2023 Family History Medical History Relation Name Comments Anxiety disorder Daughter Amber Depression Daughter Amber Cancer Father Bhavesh Stomach Cancer Maternal Aunt 1 Erlene Breast Cancer Maternal Aunt 2 Angélica Breast Diabetes Maternal Grandmother Ginny Hyperlipidemia Mother Deloris Other Mother Deloris Brain aneurysm Anxiety disorder Sister 1 Malou Arthritis Sister 1 Malou Depression Sister 1 Malou Anxiety disorder Sister 2 Carmen Arthritis Sister 2 Carmen Depression Sister 2 Carmen Hearing loss Sister 2 Carmen Hyperlipidemia Sister 2 Carmen Arthritis Sister 3 Mary Early Sister 4 Nidia 5 yo of pnuemon ia Relation Name Status Comments Daughter Amber Father Bhavesh Maternal Aunt 1 Erlene Maternal Aunt 2 Angélica Maternal Grandmother Ginny Mother Deloris Sister 1 Malou Sister 2 Carmen Sister 3 Mary Sister 4 Nidia Social History Tobacco Use Types Packs/Day Years Used Date Smoking Tobacco: Every Day Cigarettes 0.5 50 Tobacco Cessation:Ready to Q uit: Not Asked; Counseling Given: Not Answered Alcohol Use Standard Drinks/Week Comments Never 0 (1 standard drink = 0.6 oz pur e alcohol) Abuse Screen Answer Date Recorded Unsafe at Home or Work/School Not on file Feels Threatened by Someone? Not on file 06/2023 Does Anyone Keep You from Co ntacting Others or Doint Things Outside the Home? Not on file 05/17/2023 Physical Sign of Abuse Present Not on file 1 Housing Stability Answer Date Recorded Current Living Arrangements Not on file 05/07 Potentially Unsafe Housing Conditions Not on zahraa e 05/17/2023 Family and Community Support Answer Ashish e Recorded Help with Day-to-Day Activities Not on file 05/17/2023 Lonely or Isolated Not on file 05/17/2023 Employment Answer Date Recorded Do you want help finding or keeping work or a zay b? Not on file 05/17/2023 Disabilities Answer Date Recorded Concentrating, Remembering, or Making Decisions Difficulty Not on file 05/17/2023 Doing Errands Independently Difficulty Not on fi le 05/17/2023 Education Answer Date Recorded Help with school or training? Not on file Preferred Language Not on file 05/17/2023 Comments Unknown Sex and Gender Information Value Date Recorded Sex Assigned at Not on file Legal Sex Female 8:35 AM EDT Gender Identity Not on file Sexual Orientation Not on file Last Filed Vital Signs Vital Sign Reading Time Taken Comments Blood Pressure 142/84 02/16/2023 11:32 AM EDT Pulse - - Temperature 36.4 C (97.5 F) 02/16/2023 11:32 AM EDT Respiratory Rate - - Oxygen Saturation - - Inhaled Oxygen Concentration - - Weight 86.2 kg (190 lb) 02/16/2023 11:32 AM EDT Height 162.6 cm (5' 4 ) 02/16/2023 11:32 AM EDT Body Mass Index 32.61 02/16/2023 11:32 AM EDT Plan of Treatment Health Maintenance Due Date Last Done Comments DXA SCAN 1960 Pneumococcal Vaccine 50+ (1 of 2 - PCV) 1977 COLOGUARD 2003 COLON CANCER SCREENING 5 YEAR SIGMOIDOSCOPY 2003 COLONOSCOPY [address]ER SCREENING 2003 CT COLONOGRAPHY 2003 FECAL OCCULT BLOOD TEST 2003 FIT Testing (1 year) 2003 ZOSTER VACCINE (1 of 2) 2008 MAMMOGRAM 01/09/2021 01/09/2019 ANNUAL PHYSICAL 11/14/2022 HEPATITIS C SCREENING 11/14/2022 INFLUENZA VACCINE 03/07/2025 COVID-19 Vaccine (2 - season) 04/07/202505/2021 TDAP/TD VACCINES (2 - Td or Tdap) 03/26/[address] [place] [address] PPO Care Teams Icd 9 Coder Relationship Specialty Start Date End Date Alvarez Duncan MD PCP - General Family Medicine 10/21/22
--- NOTE | 2025-05-22 14:30 | CT_ITS ---
FINAL REPORT TECHNIQUE: Thin section axial images were obtained through the lungs using a low-dose technique per lung cancer screening protocol. Reconstruction images were obtained using the axial data. Exam was performed using dose reduction technique. CLINICAL HISTORY: lung cancer screening. Smokes 1.5 ppd x50 yrs. COMPARISON: 05/14/2024 FINDINGS: CTDLvol: 2.90 DLP: 96.38 Current smoker 75 pack year history Lungs: No acute pulmonary abnormality. The 4 mm posterior right lower lobe nodule noted on the prior LDCT of 05/14/2024 is once again seen, and stable in appearance. This nodule is best seen on image #47 of series 4. There is evidence of remote granulomatous disease. No new nodules are identified. Lymph nodes: No thoracic lymphadenopathy. Mediastinum: Heart size is normal. Note is made of a large hiatal hernia. Pleura/pericardium: No pleural or pericardial effusion. Prominent coronary artery calcifications are noted. Other: No acute abnormality in the upper abdomen. IMPRESSION: Stable 4 mm posterior right lower lobe nodule, with no new nodules identified. Lung RADS: 1S, the S designation for prominent coronary artery calcifications. Recommendation: 12-month follow-up LDCT. Reviewed, Interpreted and Dictated by Evita Bundy MD Transcribed by Altagracia Major Authenticated and . [facility]
== END 2025-05-22 23:59 | disposition home or self-care (01) ==
LOC: RAD 14:11
PROVIDERS: PCP Nurse Practitioner Family; Visit Provider Family Medicine
DX: I25.10 Atherosclerotic heart disease of native coronary artery without angina pectoris (principal); R91.1 Solitary pulmonary nodule; Z12.2 Encounter for screening for malignant neoplasm of respiratory organs; F17.210 Nicotine dependence, cigarettes, uncomplicated
CPT/HCPCS: 71271

== ENCOUNTER 2025-06-02 10:17 | Outpatient (CLI) | payer MEDICARE, SELFPAY ==
--- NOTE | 2025-06-02 10:19 | XR_ITS ---
FINAL REPORT CLINICAL HISTORY: left hip pain..no trauma COMPARISON: None FINDINGS: LEFT HIP: 3 views of the left hip demonstrate no acute fracture or dislocation. Moderate hypertrophic change of the acetabular margin is noted. The visualized bony structures are well aligned. No soft tissue abnormality is seen. IMPRESSION: Degenerative change as described, with no acute bony abnormality. Reviewed, Interpreted and Dictated by Gigi Monroy MD Transcribed by Altagracia Major Authenticated and [facility]
--- OUTSIDE RECORDS SUMMARY | 2025-06-02 10:28 | XMS_ITS | Clinical Summary ---
Author Organization [facility] Address [address] [id number] Care Team Providers Care Yarn Spinner Name Role Phone Tiffany Martínez FACILITY OPERATIONS MANAGER Primary Care Provider +1- [phone] Allergies No known active allergies Medications atorvastatin [...] 2008 UKY-Zoster Vaccines (1 of 2) 2008 [id number] Vaccine (1 - season) 2025 UKY-Influenza Vaccine [...] Narrative SUNQUEST - 06/04/2007 1:53 PM EDT [facility] MR #: [id number] [facility] [address] [place], [place] [address] 1960 (Age: 46) FW Collect Date: 05/24/2007 00:00 Receipt Date: 05/25/2007 14:25 Page 1 DEPARTMENT OF PATHOLOGY AND LABORATORY MEDICINE CYTOPATHOLOGY REPORT Email: [email or web address] ATTENDING MD/Practitioner: Fe Yeboah MD Service: [facility] Location: OUTS Reported: 06/04/2007 13:53 Collected: 05/24/2007 00:00 INTERPRETATION A. THIN PREP (CERVICAL/VAGINAL): ATYPICAL SQUAMOUS CELLS - UNDETERMINED SIGNIFICANCE. SHIFT IN VICTORIANO SUGGESTIVE OF BACTERIAL VAGINOSIS. SATISFACTORY FOR EVALUATION; ENDOCERVICAL/ TRANSFORMATION ZONE COMPONENT PRESENT. Slide scanned and imaged by [employer] ThinPrep Imaging System with manual review of all selected apple. Please correlate with HPV results (see microbiology report, or call [phone]) and refer to clinical guidelines for additional [...] results is suggested (please call Microbiology at [phone] for results). CLINICAL INFORMATION: Menstrual History: {Not [...] SPECIFIED BACTERIAL INFECTIONS F: A; RT IMAGE 54793, 05142 C\V (PO) SNOMED CODES: A; A7K431 M-99251 [id number] E1002 M-[id number] In cases where a pathologist has signed out the report, the service has been rendered in part by a resident. The signing pathologist has performed and is responsible for the reported pathologic evaluation. us Historical Provider LAB PATHOLOGY ORDERABLES Fin al Result [facility] from Last 3 Months or Most Recently Relevant to Health Maintenance Insurance [facility] [address] Care Teams Yarn Spinner Relationship Specialty Start Date End Date Tiffany Martínez APRN [address] [place] [phone] PCP - General 12/18/20
--- OUTSIDE RECORDS SUMMARY | 2025-06-02 10:28 | XMS_ITS | Clinical Summary ---
Author Organization [facility] Address [address], [address] [place] [address] Care Team Providers Care Composition Roll Maker And Cutter Name Role Phone System, Referring Not In [...] Treatment Not on file Insurance MARTÍNEZ SHARPE [id number] [place] Care Teams Composition Roll Maker And Cutter Relationship Specialty Start Date End Date System, Referring Not In PCP - General 11/05/13
--- OUTSIDE RECORDS SUMMARY | 2025-06-02 10:28 | XMS_ITS | Clinical Summary ---
Author Organization [facility] Address [address] [place] [address] Care Team Providers Care Manager Line Name Role Phone Alvarez Duncan MD Primary Care Provider +1- [phone] Allergies No known active allergies Medications aspirin [...] 2003 ZOSTER VACCINE (1 of 2) 2008 COVID-19 Vaccine (2 - Francisco Javier risk series) 11/11/2020 10/14/2020 MAMMOGRAM 01/09/2021 01/09/2019 ANNUAL PHYSICAL 11/14/2022 HEPATITIS C SCREENING 11/14/2022 INFLUENZA VACCINE 03/07/2025 TDAP/TD VACCINES (2 - Td or Tdap) 03/26/[address] [place] [address] PPO Member Subscriber Plan / Payer (Ef fective 2020-Present) Name:Fay Shen Relation to Subscriber:Self Name:Fay Shen Payer ID:[id number] (NAIC) Type:Not on file Address: [facility] [id number] [id number] Care Teams Manager Line Relationship Specialty Start Date End Date Alvarez Duncan MD PCP - General Family Medicine 10/21/22
== END 2025-06-02 23:59 | disposition home or self-care (01) ==
LOC: RAD 10:17
PROVIDERS: PCP Nurse Practitioner Family; Visit Provider Nurse Practitioner Family
DX: M16.12 Unilateral primary osteoarthritis, left hip (principal)
CPT/HCPCS: 73502

== ENCOUNTER 2025-06-06 09:12 | Outpatient (CLI) | payer MEDICARE, SELFPAY ==
--- NOTE | 2025-06-06 09:30 | CA_ITS ---
APPROVED REPORT EXAM: Comprehensive 2D, Doppler, and color-flow Echocardiogram Sales Support Associate: Maureen Russell RVT Ht: 5 ft 4 in Wt: 199lbs BSA: 1.95 BP: 168/63 mmHg Indications: BRADYCARDIA, ABNORMAL CT SCAN-CORONARY ARTERY CALCIFICATION 2D Dimensions LA Volume 49.60 mL LA Volume Index 25.44 mL/m2 (M/F) 16-34 M-Mode Dimensions LA Diam 3.83 cm (1.9-4.0) LVDd 4.84 cm (3.5-5.7) LVDs 3.44 cm (3.5-5.7) IVSd 0.89 cm (0.6-1.1) PWd 0.85 cm (0.6-1.1) EF (Teich) 55.50% FS 28.90% EDV (Teich) 109.60 mL TAPSE 2.95 (<1.7) ESV (Teich) 48.80 mL LV Diastology E Decel Time 187 (160-240 msec) E/A Ratio 1.0 Aortic Valve JUANITO Index 1.07 cm2/m2 AoV Peak Juan Manuel. 168.0 (50-130 cm/s) AO Peak GR. 11.30 mmHg AO Mean GR. 6.50 (<5 mmHg) AO VTI 39.4 (18-25 cm) JUANITO (VTI) 2.14 (2.5-4.5 cm2) Mitral Valve MV E Max Juan Manuel. 104.0 (40-130 cm/s) MV A Velocity 102.0 (40-130 cm/s) E/A Ratio 1.02 MV PHT 55.0 ms Pulmonary Valve PV Peak Velocity 59.0 (50-150 cm/s) Tricuspid Valve TR P. Velocity 233.00 cm/s RAP Estimate 8.00 mmHg RVSP 29.80 mmHg Left Ventricle The left ventricle is normal size. Left ventricular systolic function is low-normal. There is increased left ventricular wall thickness. There is normal LV segmental wall motion. The left ventricular diastolic function is normal. LVEF is 50%. Right Ventricle The right ventricle is normal size. The right ventricular systolic function is normal. Atria The left atrium is mildly dilated. The right atrium is mildly dilated. There is no color Doppler evidence of interatrial shunt. Aortic Valve The aortic valve is mildly thickened. There is no hemodynamically significant aortic valvular stenosis. Trace aortic regurgitation is present. Mitral Valve The mitral valve is normal in structure. No evidence of mitral valve stenosis. Mild mitral regurgitation is present. Tricuspid Valve The tricuspid valve leaflets are thin and pliable. Mild tricuspid regurgitation. RVSP is 20-25 mmHg. Pulmonic Valve The pulmonary valve is grossly normal in structure. Trace pulmonic valve regurgitation is present. Great Vessels The aortic root is normal in size. IVC is normal in size and collapses >50% with inspiration. Pericardium There is no pericardial effusion. Other Information Study Quality: Fair Conclusion Low-normal LV systolic function (LVEF 50%). Mild biatrial dilation. Mild MR, mild TR. Electronically signed by : Shayna Robertson MD 06/09/2025 00:31:04
--- OUTSIDE RECORDS SUMMARY | 2025-06-06 09:32 | XMS_ITS | Clinical Summary ---
Author Organization [facility] Address [address] [id number] Care Team Providers Care Ncr Operator Name Role Phone Tiffany Martínez NURSE REVIEWER Primary Care Provider +1- [phone] Allergies No known active allergies Medications atorvastatin [...] 2008 UKY-Zoster Vaccines (1 of 2) 2008 [id number] Vaccine (1 - season) 2025 UKY-Influenza Vaccine [...] Narrative SUNQUEST - 06/04/2007 1:53 PM EDT [facility] MR #: [id number] [facility] [address] [place], [place] [address] 1960 (Age: 46) FW Collect Date: 05/24/2007 00:00 Receipt Date: 05/25/2007 14:25 Page 1 DEPARTMENT OF PATHOLOGY AND LABORATORY MEDICINE CYTOPATHOLOGY REPORT Email: [email or web address] [id number] ATTENDING MD/Practitioner: Fe Yeboah MD Service: [facility] Location: OUTS Reported: 06/04/2007 13:53 Collected: 05/24/2007 00:00 INTERPRETATION A. THIN PREP (CERVICAL/VAGINAL): ATYPICAL SQUAMOUS CELLS - UNDETERMINED SIGNIFICANCE. SHIFT IN VICTORIANO SUGGESTIVE OF BACTERIAL VAGINOSIS. SATISFACTORY FOR EVALUATION; ENDOCERVICAL/ TRANSFORMATION ZONE COMPONENT PRESENT. Slide scanned and imaged by [employer] ThinPrep Imaging System with manual review of all selected apple. Please correlate with HPV results (see microbiology report, or call [phone]) and refer to clinical guidelines for additional [...] results is suggested (please call Microbiology at [phone] for results). CLINICAL INFORMATION: Menstrual History: {Not [...] SPECIFIED BACTERIAL INFECTIONS F: A; RT IMAGE 19631, 41849 C\V (PO) SNOMED CODES: A; Y6S411 M-00686 [id number] E1002 [id number] In cases where a pathologist has signed out the report, the service has been rendered in part by a resident. The signing pathologist has performed and is responsible for the reported pathologic evaluation. us Historical Provider LAB PATHOLOGY ORDERABLES Fin al Result [facility] [place] from Last 3 Months or Most Recently Relevant to Health Maintenance Insurance [facility] [address] Care Teams Ncr Operator Relationship Specialty Start Date End Date Tiffany Martínez APRN [address] [place] [id number] PCP - General 12/18/20
--- OUTSIDE RECORDS SUMMARY | 2025-06-06 09:32 | XMS_ITS | Clinical Summary ---
Author Organization [facility] Address [address] [place] [address] Care Team Providers Care Retention Specialist Name Role Phone Alvarez Duncan MD Primary Care Provider +1- [phone] Allergies No known active allergies Medications aspirin [...] - Td or Tdap) 03/26/[address] [place] [address] PPO Member Subscriber Plan / Payer (Ef fective 2020-Present) Name:Fay Shen Relation to Subscriber:Self Name:Fay Shen Payer ID:[id number] (NAIC) Type:Not on file Address: [facility] [address] [phone] Care Teams Retention Specialist Relationship Specialty Start Date End Date Alvarez Duncan MD PCP - General Family Medicine 10/21/22
== END 2025-06-06 23:59 | disposition home or self-care (01) ==
LOC: RT 09:12
PROVIDERS: PCP Nurse Practitioner Family; Visit Provider Physician Assistant
DX: I08.1 Rheumatic disorders of both mitral and tricuspid valves (principal); I11.9 Hypertensive heart disease without heart failure; I25.10 Atherosclerotic heart disease of native coronary artery without angina pectoris; R00.1 Bradycardia, unspecified; R93.89 Abnormal findings on diagnostic imaging of other specified body structures; Z82.49 Family history of ischemic heart disease and other diseases of the circulatory system
CPT/HCPCS: 93306

== ENCOUNTER 2025-08-05 10:00 | Outpatient (RCR) | payer MEDICARE, SELFPAY ==
--- NOTE | 2025-07-08 14:58 | HMH.PTOPEV ---
PT Evaluation Rehab PT Outpatient Evaluation Start: 07/08/25 13:56 Freq: Status: Active Protocol: Document 07/08/25 13:56 PDESEROUX (Rec: 07/08/25 14:58 [email or web address] [id number]) E-signed By Dagoberto Beltran, PT Outpatient Therapy Subjective History Subjective History Pt. is a 65 year old female who presents to [facility] Outpatient Physical Therapy Services in [place] for the PT outpatient initial evaluation this date(10/01) w/ c/o sub-acute and constant L-sided lumbar and L LE hip P!, burning, and weakness of insidious onset since May 2025. Pt. reports, I just woke up one morning with this. Pt. reports made an appointment w/ her PCP where she was initially given a round of oral steroids. Pt. reports maybe some symptom relief for the first two days, however, vocalized the P! just came right back. Pt. reports she was then prescribed a muscle relaxer and an anti-inflammatory in which she had no symptom relief. Pt. reports having a radiograph of the L LE hip that indicated osteoarthritis per pt. report. Pt. denies having any injections at this time for current complaint of P!. Pt. reports everything hurts when symptoms are it it's worse. Pt. also c/o intermittent numbness and tingling across the medial portion of the calf of L LE. Pt. also c/o burning that will refer across the L LE anterior hip region when symptoms worsens. Pt. reports the worse is trying to step or put weight on the L LE that worsen symptom complaint. Pt. reports turning over in bed will wake her up secondary to P!. Pt. reports wanting to trial Physical Therapy initially for symptom relief, however, if no further symptom relief pt. reports her PCP is referring her to a Specialist at [facility]. Pt. denies bowel/bladder dysfunction nor saddle paresthesia. Current medications include Buspirone, Cetirizine, Omeprazole, Carvedilol. PMH includes GERD, Hypertension , Hyperlipidemia, S/P B UE CTS release, and Cervical Radiculopathy. New diagnosis of No cancer in past 12 months? Chief Complaint Pain,Spasms,Stiff,Catches/Locks,Gives out/Unstable, Paresthesia,Weakness Symptom Type Ache,Throb,Sharp,Dull,Stabbing,Burning,Numbness, Tingling,Shooting Symptoms Relieved By Rest/Positioning,Heat,Ice Symptoms Aggravated Sitting,Standing,Bending/Stooping,Physical Activity, By Twisting,Walking,Lifting Prior Functional None Limitations Current Functional Lifting,Housework,Dressing,Sleeping,Standing,Sitting, Limitations Recreation Activity,Walking,Stairs,Bending/Stooping Symptom Description Constant but Variable,Activity Dependent Level of pain today 7 (0-10) Pain scale - at its 4 best (0-10) Pain scale - at its 10 worst (0-10) Lumbopelvic Eval Posture Thoracic Spine Increased Kyphosis Posture Standing Position Lumbar Spine Posture Flattened Standing Position Assistive device Assistive Devices None / NA Gait Observation General Gait Pattern Antalgic Gait,Decrease Weight Bear (L),Decrease Stride Observation Lngth (R) Palapation tenderness left lumbar spinal Yes: L1/L2/S1 spinous process grade II P-A mob./PSIS/SI tenderness jt. buttock tenderness Yes: greater trochanter/piriformis mm. Lumbar/Sacral Tenderness,Spasm Palpation Findings Lumbar/Sacral grade 4 +TTP Palpation Overall Comment Accessory Movement L-spine Vertebrae Central P/A [place],Left P/A [place] Accessory Movements that Elicit Symptoms L2 left S1 left Range of Motion Lumbar Spine Active 8 Flexion Range of Motion (degrees) Lumbar Spine Active 16 Extension Range of Motion (degrees) Left Lumbar Spine 13 Lateral Flexion Active Range of Motion (degrees) Right Lumbar Spine 15 Lateral Flexion Active Range of Motion (degrees) Lumbar Spine ROM Soft Tissue Tightness,Muscle Weakness,Muscle Tone,Pain Limitations Manual Muscle Test Left Knee Extension 4 Good Strength Grade Knee Flexion 3- Fair- Strength Grade Hip Flexion Strength 3- Fair- Grade Hip Abduction 4 Good Strength Grade Hip Adduction 4- Good- Strength Grade Hip External 4 Good Rotation Strength Grade Hip Internal 4 Good Rotation Strength Grade Hip Extension 4 Good Strength Grade Gluteus [place] 4 Good Strength Grade Extensor Hallucis 4+ Good+ Longus Strength Grade Ankle Dorsiflexion 4+ Good+ Strength Grade Gastronemius/Soleus 4+ Good+ Strength Grade DTR Rt Patellar 2+ Lt Patellar 2+ Rt Gastroc/Soleus 2+ Lt Gastroc/Soleus 2+ Altered Sensation Left LE Dermatome Level L5 Comment light touch discrimination vocalized asymmetrical in L LE compared to R LE Special Tests Lumbar Spine Screen Positive Hip Scouring ( Positive Left Quadrant) Test Hip Dagoberto (TIMOTEO) Positive Left Test Hip Sammy Test Positive Left Sciatic Nerve Positive Left Tension Test Hip 90-90 Straight Positive Left Leg Raise Test Lumbar Long [place] Positive Distraction Test/ Manual Traction Oswestry Index Section 1 Pain Intensity The pain is mild and does not vary much Section 2 Personal Care ( change my way of washing or dressing in order to avoid Washing,[place]) pain Section 3 Lifting lifting heavy weights off the floor, but I can manage if they are Section 4 Walking I cannot walk more than 1/4 mile without increasing pain Section 5 Sitting Pain prevents me from sitting for more than 1/2 hour Section 6 Standing I cannot stand more than 1/2 hour without increasing pain Section 7 Sleeping Because of my pain, my normal night's sleep is less than 6 hours sleep Section 8 Social Life Pain has restricted my social life and I do not go out often Section 9 Traveling I get some pain when traveling, but none of my usual forms of travel m Section 10 Changing Degreee of My pain is neither getting better or worse Pain Score and Risk Level Oswestry Score 23 Oswestry Risk Level Moderate Disability Lower Extremity Functional Index Activities Today, do you or would you have any difficulty at all with: a.Any of your usual Quite a bit of difficulty work, housework or school activities b. Your usual Quite a bit of difficulty hobbies, recreational or sporting activities c. Getting into or Moderate difficulty out of the bath d. Walking between Moderate difficulty rooms e. Putting on your Quite a bit of difficulty shoes or socks f. Squatting Quite a bit of difficulty g. Lifting an object Moderate difficulty , like a bag of groceries from the floor h. Performing light Moderate difficulty activities around your home i. Performing heavy Quite a bit of difficulty activities around your home j. Getting into or Quite a bit of difficulty out of a car k. Walking 2 blocks Quite a bit of difficulty l. Walking a mile Quite a bit of difficulty m. Going up or down Quite a bit of difficulty 10 stairs (about 1 flight of stairs) n. Standing for 1 Quite a bit of difficulty hour o. Sitting for 1 Quite a bit of difficulty hour p. Running on even Extreme difficulty or unable to perform activity ground q. Running on uneven Extreme difficulty or unable to perform activity ground r. Making sharp Extreme difficulty or unable to perform activity turns while running fast s. Hopping Extreme difficulty or unable to perform activity t. Rolling over in Quite a bit of difficulty bed LEFI Score Lower Extremity 20 Functional Index Score Outpatient Therapy Assessment Impairments Problems/ Palpation Tenderness,Impaired Range of Motion,Impaired Impairmments Strength,Impaired Endurance,Impaired Transfers,Impaired Gait Pattern,Impaired Walking,Impaired Standing, Impaired Sitting,Impaired Lifting,Impaired Dressing, Impaired Household Care,Impaired Stair Climbing, Impaired Incline Stepping,Impaired Stepping on Uneven Surface,Impaired Bending,Impaired Recreational Activities,Subjective C/O Pain,Impaired Self Care/Self Management Prognosis Rehab Potential Good Comment w/ HEP compliancy Clinical Impression Consistent with Yes Diagnosis Consistent with lumbago w/ radiculopathy, L Additional details: Sacro-Iliac Dysfunction, L Greater Trochanteric Bursitis L B/L(L>R) Hip Osteoarthritis PT Patient Goals PT Patient Goals PT Short Term STG#1.) Pt. will subjectively vocalize comparable P! a Patient Goals 5/10 @ worse in 4 wks. for improved QOL. STG#2.) Pt. will demonstrate grade 2 +TTP lumbar spine in 4 wks. for improved QOL. STG#3.) Pt. will exhibit compliancy w/ initial HEP in 4 wks. for improved prognosis w/ Physical Therapy. PT Regional Account Director Patient LTG#1.) Pt. will subjectively vocalize comparable P! a Goals 2/10 @ worse in 6-8 wks. for improved QOL. LTG#2.) Pt. will demonstrate grade 1 +TTP to lumbar spine in 6-8 wks. for improved QOL. LTG#3.) Pt. will exhibit compliancy w/ advanced HEP in 6-8 wks. for optimal prognosis w/ Physical Therapy. LTG#4.) Pt. will demonstrate a 5 degree improvement in L-sided lumbar lateral flexion in 6-8 wks. to return to rolling over in bed while sleeping w/o P!. LTG#5.) Pt. will demonstrate >45 degrees lumbar flexion ROM w/o P! in 6-8 wks. to return to sitting for 30' w/ o difficulty. LTG#6.) Pt. will demonstrate 4+/5 in L LE hip flexion MMT score in 6-8 wks. to return to transitioning into/ out of vehicle w/o difficulty. Outpatient Therapy Plan of Care Treatment Plan May Include Therapeutic Exercise Yes Including Home Exercise Program Manual Therapy Yes Techniques Neuromuscular Re- Yes education Therapeutic Yes Activities to Return to Previous Functional/Work Level Gait Training Yes ADL/Self Care Yes Education Mechanical Traction Yes Dry Needling Yes Thermal Modalities Yes Electrical Yes Stimulation Ultrasound/ Yes Phonophoresis Iontophoresis Yes Vasopneumatic Yes Compression Pump Massage Yes Eval/Re-Eval Yes Frequency Times per week 2 Duration Number of Weeks 6-8 Addendums This patient is a No candidate for social or vocational rehab ? Patient/Guardian Yes verbally acknowledges understanding of treatment program and consents to further treatment? Patient/Guardian Yes verbally acknowledges understanding of diagnosis, prognosis and goals for treatment? Eval Complexity PT Charges 12510 - Moderate Complexity Shoulder/Elbow Eval Shoulder Objective Measurements Elbow Objective Measurements PHYSICIAN CERTIFICATION: I certify the specified therapy services for Fay Shen are required, authorized, and reviewed every 30 days.
== END 2025-08-06 11:48 | disposition home or self-care (01) ==
LOC: PT.CARL 10:00
PROVIDERS: PCP Nurse Practitioner Family; Visit Provider Nurse Practitioner Family
DX: M25.552 Pain in left hip (principal); G89.29 Other chronic pain
CPT/HCPCS: 97012; 97032; 97110; 97112; 97140; 97162